=== PATIENT | female | born 1985 | race Caucasian/White ===

== ENCOUNTER 2021-01-18 16:00 | Inpatient (IN) | payer OTHER ==
[2021-01-18 17:34] VITALS: BMI 26.5
[2021-01-18 17:34] LABS: URINE AMPHETAMINES NEGATIVE (NEGATIVE); URINE BARBITURATES NEGATIVE (NEGATIVE)
[2021-01-18 17:35] LABS: PHENCYCLIDINE,URINE NEGATIVE (NEGATIVE)
[2021-01-18 17:47] LABS: COCAINE, UR NEGATIVE (NEGATIVE); METHADONE, UR NEGATIVE (NEGATIVE); OPIATES, URI NEGATIVE (NEGATIVE); URINE BENZODIAZEPINES NEGATIVE (NEGATIVE)
[2021-01-18 18:29] LABS: BASO % 0.2 % (0-2.0); EOS % 0.2 % (0-4.5); HEMATOCRIT 32.3 % (32.4-45.2); HEMOGLOBIN 11.1 GM/dL (10.7-15.3); LYMPH % 14.1 % (8-40); MCH 31.8 pg (25.7-33.7); MCHC 34.3 g/dl (32.0-36.0); MEAN CELL VOLUME 92.8 fl (80-96); MEAN PLT VOLUME 7.8 fl (7.5-11.1); NEUT % 80.5 % (42.8-82.8); PLATELET COUNT 219 10^3/uL (134-434); RBC 3.48 M/mm3 (3.60-5.2); RDW 13.2 % (11.6-15.6); WHITE BLOOD COUNT 9.8 K/mm3 (4.0-10.0)
[2021-01-18 18:36] LABS: INR 0.99 (0.83-1.09); PROTHROMBIN TIME (PATIENT) 12.2 SEC (9.7-13.0)
[2021-01-18 18:39] LABS: ACTIVATED PTT 25.3 SECONDS (25.2-36.5)
[2021-01-18 18:57] LABS: BLOOD UREA NITROGEN 5.9 mg/dL (7-18)
[2021-01-18 19:00] LABS: CREATININE 0.4 mg/dL (0.55-1.3)
[2021-01-18] MEDS ORDERED: ELECTROLYTE-148 SOLN 500 ML IV ONE (19:39)
[2021-01-18] MEDS ORDERED: CITRIC ACID/SODIUM CITRATE 30 ML UNIT-DOSE CUP PO ONE (19:39)
[2021-01-18] MEDS ORDERED: ELECTROLYTE-148 SOLN 1,000 ML IV SCH (19:45)
[2021-01-18] MEDS ORDERED: PROPOFOL 20 ML ONE ×2 (20:53)
[2021-01-18] MEDS ORDERED: ceFAZolin SODIUM 1 GM VIAL ONE (21:07)
[2021-01-18] MEDS ORDERED: ONDANSETRON 4 MG/2 ML VIAL ONE (21:07)
[2021-01-18] MEDS ORDERED: KETOROLAC TROMETHAMINE 30 MG/1 ML VIAL ONE (21:07)
[2021-01-18] MEDS ORDERED: OXYTOCIN 10 UNITS/ML VIAL ONE (21:07)
[2021-01-18] MEDS ORDERED: ePHEDrine SULFATE 50 MG/1 ML AMPULE ONE (21:20)
[2021-01-18] MEDS ORDERED: OXYTOCIN 20 UNITS in 0.9% NS 20 UNIT/1,000 ML INFUS.BAG IV ONE (22:50)
[2021-01-18] MEDS ORDERED: SENNOSIDES/DOCUSATE COMBO (SENNA PLUS) TABLET (UD) PO PRN (23:02)
[2021-01-18] MEDS ORDERED: SIMETHICONE 80 MG TAB.CHEW (FP) PO PRN (23:02)
[2021-01-18] MEDS ORDERED: oxyCODONE HCL 5 MG TABLET PO PRN ×2 (23:02)
[2021-01-18] MEDS ORDERED: IBUPROFEN 800 MG/8 ML IJ IVPB PRN (23:02)
[2021-01-18] MEDS ORDERED: METHYLERGONOVINE MALEATE 0.2 MG/1 ML AMP IM PRN (23:02)
[2021-01-18] MEDS ORDERED: OXYTOCIN 20 UNITS in 0.9% NS 20 UNIT/1,000 ML INFUS.BAG IV SCH (23:15)
[2021-01-19 08:56] LABS: BASO % 0.2 % (0-2.0); EOS % 0.2 % (0-4.5); HEMATOCRIT 28.3 % (32.4-45.2); HEMOGLOBIN 9.8 GM/dL (10.7-15.3); LYMPH % 11.5 % (8-40); MCH 31.8 pg (25.7-33.7); MCHC 34.5 g/dl (32.0-36.0); MEAN CELL VOLUME 92.1 fl (80-96); MEAN PLT VOLUME 7.7 fl (7.5-11.1); MONO % 6.4 % (3.8-10.2); NEUT % 81.7 % (42.8-82.8); PLATELET COUNT 183 10^3/uL (134-434); RBC 3.07 M/mm3 (3.60-5.2); RDW 13.1 % (11.6-15.6); WHITE BLOOD COUNT 10.7 K/mm3 (4.0-10.0)
[2021-01-19] MEDS: PRENATAL VITAMINS W/ FOLIC ACID TABLET (FP) PO SCH (10:14)
[2021-01-19] MEDS: IBUPROFEN 600 MG TABLET (FP) PO PRN ×2 (16:47→21:34)
[2021-01-19] MEDS: ACETAMINOPHEN 325 MG TABLET (FP) PO PRN ×2 (16:48→21:34)
[2021-01-19] MEDS ORDERED: BISACODYL 10 MG SUPP.RECT RC PRN (23:02)
[2021-01-20] MEDS: PRENATAL VITAMINS W/ FOLIC ACID TABLET (FP) PO SCH (09:29)
[2021-01-20 11:30] VITALS: BP 117/65; PULSE 84; TEMP 97.1
== END 2021-01-20 12:40 | disposition home or self-care (01) | DRG 540 ==
LOC: JLDR 16:00 → J3W 01-19 00:14
PROVIDERS: ADMIT Obstetrics & Gynecology; ATTEND Obstetrics & Gynecology
PROC: 10D00Z1 Extraction of Products of Conception, Low, Open Approach (ICD-10-PCS; principal; 2021-01-18)
DX: O34.211 Maternal care for low transverse scar from previous cesarean delivery (principal); Z3A.38 38 weeks gestation of pregnancy; Z37.0 Single live birth
CPT/HCPCS: 36415; 80048; 80307; 85025; 85610; 85730; 86780; 86850; 86900; 86901; 88307-TC; C9803; U0003; U0005